=== PATIENT | female | born 1990 | race African-American/Black ===

== ENCOUNTER 2016-09-04 04:16 | Emergency (ER) | payer OTHER ==
[~2016-09-04] VITALS: Ht 160 cm; Wt 61.2 kg
== END 2016-09-04 05:52 | disposition home or self-care (01) ==
LOC: CED 04:16
DX: R11.2 Nausea with vomiting, unspecified (principal); R19.7 Diarrhea, unspecified
CPT/HCPCS: 84703; 99284